=== PATIENT | male | born 1960 | race Caucasian/White ===

== ENCOUNTER 2018-02-03 11:11 | Emergency (ER) | payer BC ==
[2018-02-03 11:28] VITALS: BP 136/102
[2018-02-03] MEDS ORDERED: Gadobenate Dimeglumine 529 MG/ML 20 ML SDV IVPUSH ONE (11:57)
[2018-02-03] MEDS ORDERED: Sodium Chloride 0.9% 10 ML Syringe FLUSH SCH (12:00)
--- NOTE | 2018-02-03 13:27 | MR ---
MRI brain (without and with contrast) Technique: T1 sagittal; T2, T2 FLAIR, diffusion and T1 axial; T1 FLAIR coronal; post gadolinium T1 sagittal, T1 post gadolinium axial and post gadolinium T1 FLAIR coronal images. Comparison: No previous intracranial imaging. Findings: Ventricles along with basal cisterns and sulci over the convexities are within normal limits for the patient's age. Minimal areas of increased signal are seen within the subcortical white matter on both sides. No other abnormal areas of signal is seen within the brain parenchyma. No acute diffusion abnormalities are seen. Right and left globes are symmetric in size. Extraocular muscles are symmetric in size. No retrobulbar mass is seen. Moderate mucosal thickening is seen within the left maxillary sinus with slightly less mucosal thickening within the right maxillary sinus. Probable retention cyst is noted within the right sphenoid sinus. Cavernous sinuses appear within normal limits. Normal signal void is seen within the major cerebral arteries within the skull base. No midline shift or mass effect is seen. No abnormal enhancement is seen within the brain parenchyma. Impression: 1. Small areas of increased signal within the subcortical white matter on both sides of the brain. These findings are felt to be incidental and old. 2. Sinus findings which are most likely chronic. 3. No additional abnormality is appreciated on MRI study of the brain performed without and with contrast. Diagnostic code #3
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
== END 2018-02-03 14:22 | disposition home or self-care (01) ==
LOC: JD.ED 11:11
DX: L12.9 Pemphigoid, unspecified (principal); F17.210 Nicotine dependence, cigarettes, uncomplicated
CPT/HCPCS: 36415; 70553; 80053; 81001; 85025; 86140; 99284; A9577; J7050